=== PATIENT | male | born 1965 | race Caucasian/White ===

== ENCOUNTER 2021-02-14 18:20 | Emergency (ER) | payer BC ==
[2021-02-14 19:04] VITALS: BP 134/74; PULSE 78; TEMP 98.9; BMI 1115.9
[2021-02-14] MEDS ORDERED: CIPROFLOXACIN HCL 0.3% OPHTH 2.5ML BOTTLE ONE (19:20)
== END 2021-02-14 19:25 | disposition home or self-care (01) ==
LOC: FER 18:20
DX: H00.014 Hordeolum externum left upper eyelid (principal)
CPT/HCPCS: 99283-25